=== PATIENT | male | born 1970 | race Hispanic/Latino ===

== ENCOUNTER 2018-11-02 13:48 | Emergency (ER) | payer SELFPAY ==
--- OUTSIDE RECORDS SUMMARY | 2018-11-02 13:51 | XMS REPORT | Clinical Summary ---
:1970 Author Organization [facility] Address [address] [place] [address] Care Team Providers Name Role Phone Asked, No Pcp Primary Care Provider Unavailable Allergies Active Allergy Reactions Severity Noted Date Comments Naproxen Sodium Swelling High 05/02/2018 Medications Medication Sig Dispensed Refills Start Date End Date Status metoprolol Take 12.5 mg 0 Active succinate XL by mouth (TOPROL-XL) 25 mg every 24 hr tablet evening. aspirin (ECOTRIN) Take 81 mg by 0 Active 81 MG enteric mouth daily. coated tablet metoprolol tartrate Take 12.5 mg 0 05/02/2018 Discontinued (LOPRESSOR) 25 mg by mouth tablet nightly. Active Problems Not on file Encounters Date Type Specialty Care Team Description 05/02/2018 Emergency Emergency Medicine José Pemberton, Acute chest pain Delroy Lopez MD (Primary Dx) after 11/01/2017 Social History Tobacco Use Types Packs/Day Years Used Date Never Smoker Smokeless Tobacco: Never Used Alcohol Use Drinks/Week oz/Week Comments Yes SOCIAL Sex Assigned at Date Recorded Not on file Job Start Date Occupation Industry Not on file Not on file Not on file Travel History Travel Start Travel End No recent travel history available. Last Filed Vital Signs Vital Sign Reading Time Taken Blood Pressure 131/76 05/02/2018 3:00 PM CDT Pulse 74 05/02/2018 3:00 PM CDT Temperature 37.1 C (98.7 F) 05/02/2018 9:31 AM CDT Respiratory Rate 20 05/02/2018 3:00 PM CDT Oxygen Saturation 99% 05/02/2018 3:00 PM CDT Inhaled Oxygen Concentration - - Weight 82.1 kg (181 lb) 05/02/2018 9:31 AM CDT Height 167.6 cm (5' 6") 05/02/2018 9:31 AM CDT Body Mass Index 29.21 05/02/2018 9:31 AM CDT Plan of Treatment Health Maintenance Due Date Last Done Comments INFLUENZA VACCINE 03/01/2019 Procedures Procedure Name Priority Date/Time Associated Comments Diagnosis TROPONIN STAT 05/02/2018 1:55 Results for this PM CDT procedure are in the results section. ECG 12-LEAD STAT 05/02/2018 1:53 Results for this PM CDT procedure are in the results section. ECG ED PRELIMINARY Routine 05/02/2018 10:40 Results for this INTERPRETATION AM CDT procedure are in the results section. ECG ED PRELIMINARY Routine 05/02/2018 10:40 Results for this INTERPRETATION AM CDT procedure are in the results section. XR CHEST 1 VW PORTABLE STAT 05/02/2018 9:55 Results for this AM CDT procedure are in the results section. ESTIMATED GFR Routine 05/02/2018 9:37 Results for this AM CDT procedure are in the results section. B NATRIURETIC PEPTIDE Routine 05/02/2018 9:37 Results for this AM CDT procedure are in the results section. LIPASE LEVEL Routine 05/02/2018 9:37 Results for this AM CDT procedure are in the results section. TROPONIN Routine 05/02/2018 9:37 Results for this AM CDT procedure are in the results section. COMPREHENSIVE METABOLIC Routine 05/02/2018 9:37 Results for this PANEL AM CDT procedure are in the results section. PROTHROMBIN TIME WITH Routine 05/02/2018 9:37 Results for this INR AM CDT procedure are in the results section. HC COMPLETE BLD COUNT Routine 05/02/2018 9:37 Results for this W/AUTO DIFF AM CDT procedure are in the results section. ECG 12-LEAD STAT 05/02/2018 9:24 Results for this AM CDT procedure are in the results section. after 11/01/2017 Results Troponin (05/02/2018 1:55 PM CDT)Only the most recent of2 resultswithin the time period is included. Troponin <0.30 0.00 - 0.30 ng/mL [facility]PART[facility] OF PATHOLOGY Comment: AND GENOMIC MEDICINE 0.11 - 1.49 ng/mlMay indicate increased risk of acute coronary syndrome. >=1.5 ng/mlConsistent with acute myocardial infarction. The diagnostic value of a single normal or non-diagnostic result is questionable.Serial samples at 2-6 hour intervals are required to rule out acute myocardial injury. Specimen Plasma specimen Performing Organization Address City/[facility]/Zipcode Phone Number [facility]OLOGY AND [address] [place] [id number] GENOMIC MEDICINE ECG 12 lead (05/02/2018 1:53 PM CDT)Only the most recent of2 resultswithin the time period is included. Ventricular rate 82 [facility] Atrial rate 82 [facility] LA interval 146 [facility] QRSD interval 102 [facility] QT interval 418 [facility] QTC interval 488 [facility] P axis 1 54 [facility] QRS axis 1 43 [facility] T wave axis 31 [facility] EKG impression Normal sinus rhythm with sinus [facility] MUSE arrhythmia-Prolonged QT-Abnormal ECG-In automated comparison with ECG of 02-MAY-2018 09:24,-No significant change was found- Performing Organization Address [facility] Phone Number [facility] MUSE [address] [place] [address] ECG ED Preliminary Interpretation - NOT AN ORDER (05/02/2018 10:40 AM CDT)Only the most recent of2 resultswithin the time period is included. Narrative Performed At Delroy Garduno MD 05/03/2018 11:47 AM ECG ED Preliminary Interpretation - Not an Order Performed by: DELROY GARDUNO Authorized by: DELROY GARDUNO ECG reviewed by ED Physician in the absence of a convention services manager: yes Previous ECG: Previous ECG:Compared to current Comparison ECG info:Compared to EKG taken on arrival Similarity:No change Interpretation: Interpretation: normal Rate: ECG rate:82 ECG rate assessment: normal Rhythm: Rhythm: sinus rhythm Ectopy: Ectopy: none QRS: QRS axis:Normal Conduction: Conduction: normal ST segments: ST segments:Normal T waves: T waves: normal XR Chest 1 Vw Portable (05/02/2018 9:55 AM CDT) Narrative Performed At EXAMINATION:XR CHEST 1 VW PORTABLE [facility] CLINICAL HISTORY:Chest Pain XR CHEST 1 VW PORTABLEimages are submitted COMPARISON:NONE FINDINGS: The cardiac silhouette is normal in size. The pulmonary vasculature is within normal limits. The lung zones have no focal area of consolidation. There is no pleural effusion or pneumothorax. IMPRESSION: 1. There is no acute cardiopulmonary disease. [facility][id number] Procedure Note Hm Interface, Radiology Results Incoming - 05/02/2018 10:07 AM CDT EXAMINATION: XR CHEST 1 VW PORTABLE CLINICAL HISTORY: Chest Pain XR CHEST 1 VW PORTABLE images are submitted COMPARISON: NONE FINDINGS: The cardiac silhouette is normal in size. The pulmonary vasculature is within normal limits. The lung zones have no focal area of consolidation. There is no pleural effusion or pneumothorax. IMPRESSION: 1. There is no acute cardiopulmonary disease. [facility][id number] Performing Organization Address City/[facility]/Zipcode Phone Number J[address]GE [address] [place] [address] Estimated GFR (05/02/2018 9:37 AM CDT) Estimated GFR >=90 mL/min/1.73 m2 [facility] DEPARTMENT OF Comment: PATHOLOGY AND GENOMIC CatergoryUnitsInterpretation MEDICINE G1 >=90 Normal or high G2 60-89Mildly decreased [id number] to moderately decreased [id number] to severely decreased G4 15-29Severely decreased G5 <15Kidney failure The eGFR was calculated using the Chronic Kidney Disease Epidemiology Collaboration (CKD-EPI) equation. Interpretation is based on recommendations of the National Kidney Foundation-Kidney Disease Outcomes Quality Initiative (NKF-KDOQI) published in 2014. Specimen Plasma specimen Performing Organization Address [facility] Hospitalcoks Phone Number [facility] OF [facility]OLOGY AND [place] [address] [employer] MEDICINE Prothrombin time with INR (05/02/2018 9:37 AM CDT) Prothrombin time 12.1 12.0 - 15.0 sec [facility] OF PATHOLOGY AND GENOMIC MEDICINE INR 0.89 (L) 0.92 - 1.12 [facility] OF Comment: PATHOLOGY AND GENOMIC For patients on anticoagulant therapy, reference ranges below: MEDICINE Indication:INR Value Treatment of Venous Thrombosis, 2.0-3.0 pulmonary emboli, or prophylaxis of a venous thrombosis, or systemic emboli. High dose, high risk patients 3.0-4.5 with mechanical valves. NOTE:INR values over 3.0 are sometimes associated with gastrointestinal hemorrhage, especially values over 4.0. Specimen Blood Performing Organization Address [facility] Hospitalcode Phone Number [facility] OF [facility]OLOGY AND [address] [place] [address] [facility] MEDICINE CBC with platelet and differential (05/02/2018 9:37 AM CDT) WBC 6.3 4.2 - 11.0 k/uL [facility] OF [facility]OLOGY AND GENOMIC MEDICINE RBC 4.71 4.04 - 5.86 m/uL [facility] OF [facility]OLOGY AND GENOMIC MEDICINE HGB 14.7 13.0 - 17.3 g/dL [facility] OF [facility]OLOGY AND GENOMIC MEDICINE HCT 43.7 34.0 - 45.0 % [facility] OF [facility]OLOGY AND GENOMIC MEDICINE MCV 92.8 80.0 - 98.0 fL [facility] OF [facility]OLOGY AND GENOMIC MEDICINE MCH 31.2 27.0 - 34.0 pg [facility] OF PATHOLOGY AND GENOMIC MEDICINE MCHC 33.6 31.5 - 36.5 g/dL [facility] OF [facility]OLOGY AND GENOMIC MEDICINE RDW - SD 44.5 37.0 - 51.0 fL [facility] OF [facility]OLOGY AND GENOMIC MEDICINE MPV 10.0 7.4 - 10.4 fL [facility]OLOGY AND GENOMIC MEDICINE Platelet count 210 150 - 400 k/uL [facility] OF [facility]OLOGY AND GENOMIC MEDICINE Nucleated RBC 0.00 /100 WBC [facility] OF PATHOLOGY AND GENOMIC MEDICINE Neutrophils 52.8 36.0 - 66.0 % [facility] OF [facility]OLOGY AND GENOMIC MEDICINE Lymphocytes 33.2 24.0 - 44.0 % [facility] OF [facility]OLOGY AND GENOMIC MEDICINE Monocytes 7.3 (H) 0.0 - 6.0 % [facility] OF [facility]OLOGY AND GENOMIC MEDICINE Eosinophils 5.6 0.0 - 6.0 % [facility] OF [facility]OLOGY AND GENOMIC MEDICINE Basophils 0.5 0.0 - 1.2 % [facility] OF [facility]OLOGY AND GENOMIC MEDICINE Immature granulocytes 0.6 0.0 - 1.0 % [facility] OF [facility]OLOGY AND GENOMIC MEDICINE Specimen Blood Performing Organization Address City/State/Zipcode Phone Number [facility]OLOGY AND [address] [place] [address] [facility] B natriuretic peptide (05/02/2018 9:37 AM CDT) BNP 5 0 - 100 pg/mL [facility] OF [facility]OLOGY AND GENOMIC MEDICINE Specimen Blood Performing Organization Address City/State/Zipcode Phone Number [facility]OLOGY AND [address] [place] [address] GENOMIC MEDICINE Lipase level (05/02/2018 9:37 AM CDT) Lipase 23 13 - 60 U/L [facility] OF PATHOLOGY AND GENOMIC MEDICINE Specimen Plasma specimen Performing Organization Address City/[facility] Hospital[facility] Phone Number [facility] OF [facility]OLOGY AND [address] [address] [facility] Comprehensive metabolic panel (05/02/2018 9:37 AM CDT) Sodium 139 135 - 150 mEq/L [facility] OF PATHOLOGY AND GENOMIC MEDICINE Potassium 4.1 3.5 - 5.0 mEq/L [facility] OF PATHOLOGY AND GENOMIC MEDICINE Chloride 98 98 - 112 mEq/L [facility] OF [facility] AND GENOMIC MEDICINE CO2 26 24 - 31 mmol/L [facility] OF [facility]OLOGY AND GENOMIC MEDICINE Anion gap 15@ANIO 7 - 15 mEq/L [facility] OF [facility]OLOGY AND GENOMIC MEDICINE BUN 15 7 - 18 mg/dL [facility] OF PATHOLOGY AND GENOMIC MEDICINE Creatinine 0.90 0.70 - 1.20 mg/dL [facility] OF PATHOLOGY AND GENOMIC MEDICINE Glucose 136 (H) 65 - 100 mg/dL [facility] OF [facility]OLOGY AND GENOMIC MEDICINE Calcium 9.2 8.3 - 10.2 mg/dL [facility] OF PATHOLOGY AND GENOMIC MEDICINE Protein 7.6 6.3 - 8.3 g/dL [facility] OF [facility]OLOGY AND GENOMIC MEDICINE Albumin 4.1 3.5 - 5.0 g/dL [facility] OF PATHOLOGY AND GENOMIC MEDICINE A/G ratio 1.2 0.7 - 3.8 [facility] OF [facility]OLOGY AND GENOMIC MEDICINE Alkaline phosphatase 91 0 - 129 U/L [facility] OF [facility]OLOGY AND GENOMIC MEDICINE AST 35 10 - 50 U/L [facility] OF PATHOLOGY AND GENOMIC MEDICINE ALT 53 (H) 5 - 50 U/L [facility] OF PATHOLOGY AND GENOMIC MEDICINE Total bilirubin 0.5 0.2 - 1.2 mg/dL [facility] OF PATHOLOGY AND GENOMIC MEDICINE Specimen Plasma specimen Performing Organization Address City/State/Zipcode Phone Number [facility]OLOGY AND [place] [address] [facility] after 11/01/2017 Advance Directives Patient has advance care planning documents on file. For more information, please contact:Cheng Ibrahim[address] [place] [id number]
--- OUTSIDE RECORDS SUMMARY | 2018-11-02 13:51 | XMS REPORT | Summary of Care ---
:1970 Author Name KYLE MODI M.D. Address Unavailable Unavailable , Care Team Providers Name Role Phone KYLE MODI M.D. Unavailable Unavailable Catalina Givens M.A. Unavailable Unavailable MARY VINES, JT LEY Unavailable Unavailable Unavailable Unavailable Unavailable Functional Status Name Dates Details Functional status health issues are not documented Status: Name Dates Details Cognitive status health issues are not documented Status: Problems Name Dates Details Chest tightness or pressure (786.59, R07.89) Status: Active Essential (primary) hypertension (401.9, I10) Status: Active Pounding heartbeat (785.1, R00.2) Status: Active Medications Name Dates Details Metoprolol Succinate ER 25 MG Oral Tablet Extended Release 24 Hour TAKE 1 TABLET BEDTIME Quantity: 90 Refills: 0 KYLE MODI M.D. Start : 12-Aug-2015 Active Blood Pressure Monitor Automat Device check blood pressure 3 times a day Quantity: 1 Refills: 0 KYLE MODI M.D. Start : 05-Mar-2016 Active Allergies and Adverse Reactions Name Dates Details Aleve CAPS (Allergy) Status: Active Past Medical History Name Dates Details History of essential hypertension (V12.59, Z86.79) Status: Resolved History of Intercostal pain (786.59, R07.82) Status: Resolved Procedures Procedure Dates Details History of Appendectomy Completed History of Hernia Repair Completed Immunization Name Dates Details Immunizations not documented Family History Name Dates Details Family history of Cancer Comments: Family History Status: Active Name Dates Details Family history of Essential Hypertension Status: Active Social History Name Dates Details - Status: Name Dates Details Never smoker Vital Signs Date Test Result Details No Known Vitals to report Results Date Description Value Details Results not documented Plan of Care Name Dates Details Planned Observations Planned Goals not documented Interventions Provided Medication ChangesMetoprolol Succinate ER 25 MG Oral Tablet Extended Release 24 Hour - Renew Instructions Name Dates Details Instructions not documented Encounters Appointment; KYLE MODI M.D. On: 16-Nov-2016 9:15 Encounter Diagnosis: Problem not documented Appointment; KYLE MODI M.D. On: 18-Nov-2016 8:50 Encounter Diagnosis: Problem not documented Appointment; KYLE MODI M.D. On: 15-Jun-2017 13:10 Encounter Diagnosis: Problem not documented Appointment; KYLE MODI M.D. On: 06-Jul-2017 13:30 Encounter Diagnosis: Problem not documented Appointment; KYLE MODI M.D. On: 06-Jan-2018 8:45 Encounter Diagnosis: Problem not documented Appointment; KYLE MODI M.D. On: 30-Jan-2018 14:50 Encounter Diagnosis: Problem not documented Appointment; KYLE MODI M.D. On: 08-May-2018 15:00 Encounter Diagnosis: Problem not documented
[2018-11-02 14:12] LABS: Absolute Lymphocytes (CBC) 1.6 K/uL (0.7-4.9); Absolute Monocytes 0.5 K/uL (0.1-1.3); Absolute Neutrophil 3.3 K/uL (1.8-8.0); Basophils % 0.7 % (0-1.3); Eosinophils % 5.8 % (0-4.4); Hematocrit 40.4 % (39.6-49.0); Lymphocytes % 27.2 % (15.3-44.8); MPV 8.6 fL (7.6-11.3); Monocytes % 8.8 % (3.3-12.3); RBC Red Blood Cell Count 4.36 M/uL (4.33-5.43)
[2018-11-02 14:28] LABS: BUN Blood Urea Nitrogen 20 mg/dL (7-18); Bicarbonate 27 mmol/L (21-32); Glucose Level 98 mg/dL (74-106); NT PRO-BNP 43 pg/mL (<125); Potassium 3.6 mmol/L (3.5-5.1); Sodium Level 142 mmol/L (136-145); Troponin (Emerg Dept Use Only) < 0.02 ng/mL (0.0-0.045)
--- NOTE | 2018-11-02 14:37 | RAD REPORT ---
EXAM DESCRIPTION: RAD - Chest Single View - 11/02/2018 2:13 pm CLINICAL HISTORY: Chest pain radiating to the right COMPARISON: August 2015 TECHNIQUE: AP portable chest image was obtained 1409 hours . FINDINGS: Lungs are clear. Heart and vasculature are normal. No measurable pleural effusion and no p neumothorax. No acute bony abnormality seen. No acute aortic findings suspected. IMPRESSION: No acute cardiopulmonary process. No significant interval change.
[2018-11-02] MEDS ORDERED: ACETAMINOPHEN 500 MG TAB ONE (15:50)
--- NOTE | 2018-11-02 17:57 | ER ---
Nurse's Notes [facility] Name: Tomy Miranda Age: 48 yrs Sex: Male : 1970 Arrival Date: 11/02/2018 Time: 13:50 Bed 8 Private MD: Diagnosis: Chest pain, unspecified Presentation: 11/02 13:54 Presenting complaint: Patient states: substernal chest pain radiating to right side of iw chest while working up on scaffold, pt states he got hot and dizzy and felt nauseous, hx of RI on 2007, no stent placement pain 8/10, described as sharp, pain unresolved after 1 SL Nitro and 324 ASA. Transition of care: patient was not received from another setting of care. Onset of symptoms was November 02, 2018. Risk Assessment: Do you want to hurt yourself or someone else? Patient reports no desire to harm self or others. Initial Sepsis Screen: Does the patient meet any 2 criteria? No. Patient's initial sepsis screen is negative. Does the patient have a suspected source of infection? No. Patient's initial sepsis screen is negative. Care prior to arrival: Medication(s) given: ASA, 81 mg, x 4, Normal saline infusion, 250 mL Nitroglycerin, 0.4 mg SL x 1, IV initiated. 20 GA, in the left antecubital area. 13:54 Method Of Arrival: EMS: [facility] 13:54 Acuity: LESLIE 2 iw Historical: - Allergies: 14:00 Aleve; iw - Home Meds: 14:00 Metoprolol Tartrate 12.5 mg Oral once daily [Active]; iw - PMHx: 14:00 Myocardial infarction; iw - PSHx: 13:56 Appendectomy; Hernia repair; iw - Immunization history:: Adult Immunizations not up to date. - Social history:: Smoking status: Patient/guardian denies using tobacco. - Ebola Screening: : Patient negative for fever greater than or equal to 101.5 degrees Fahrenheit, and additional compatible Ebola Virus Disease symptoms Patient denies exposure to infectious person Patient denies travel to an Ebola-affected area in the 21 days before illness onset No symptoms or risks identified at this time. - Family history:: not pertinent. - Hospitalizations: : No recent hospitalization is reported. Screenin:14 Abuse screen: Denies threats or abuse. Denies injuries from another. Nutritional iw screening: No deficits noted. Tuberculosis screening: No symptoms or risk factors identified. Fall Risk IV access (20 points). Assessment: 14:08 General: Appears in no apparent distress. Behavior is calm, cooperative. Pain: iw Complains of pain in mid-sternal area Pain radiates to anterior aspect of right upper chest Pain began 1 hour ago. Neuro: Level of Consciousness is awake, alert, obeys commands, Moves all extremities. Full function. Cardiovascular: Reports chest pain, Heart tones S1 S2 Capillary refill < 3 seconds in bilateral fingers Patient's skin is warm and dry. Respiratory: Respiratory effort is even, unlabored, Respiratory pattern is regular. GI: Abdomen is flat. Derm: Skin is intact, is healthy with good turgor. Musculoskeletal: Range of motion: intact in all extremities. 14:58 Reassessment: Patient and/or family updated on plan of care and expected duration. Pain hj level reassessed. Patient is alert, oriented x 3, equal unlabored respirations, skin warm/dry/pink. awaiting results and POC:. 16:14 Reassessment: repeat trop at 5 pm;. hj 17:21 Reassessment: Patient appears in no apparent distress at this time. Patient and/or iw family updated on plan of care and expected duration. Pain level reassessed. Patient is alert, oriented x 3, equal unlabored respirations, skin warm/dry/pink. repeat trop sent to lab Patient denies pain at this time. Patient states feeling better. Vital Signs: 13:57 BP 130 / 91; Pulse 76; Resp 16; Temp 98.9(TE); Pulse Ox 100% on R/A; Weight 79.38 kg; iw Height 5 ft. 6 in. (167.64 cm); Pain 8/10; 14:22 BP 137 / 82; Pulse 72; Resp 16; Pulse Ox 99% on R/A; iw 14:34 BP 127 / 81; Pulse 74; Resp 16; Pulse Ox 98% on R/A; iw 14:57 BP 127 / 81; Pulse 69; Resp 18; Pulse Ox 99% on R/A; hj 16:15 BP 128 / 85; Pulse 58; Resp 18; Pulse Ox 100% on R/A; hj 17:21 BP 131 / 84; Pulse 55; Resp 16; Pulse Ox 98% on R/A; iw 13:57 Body Mass Index 28.25 (79.38 kg, 167.64 cm) iw ED Course: 13:50 Patient arrived in ED. hj 13:56 Triage completed. iw 13:57 Arm band placed on. iw 13:57 Patient has correct armband on for positive identification. Placed in gown. Bed in low hj position. Call light in reach. Side rails up X 1. Adult w/ patient. shelter monitor on. Pulse ox on. NIBP on. 13:58 Sebastián Kennedy MD is Attending Physician. rn 14:02 EKG done, by smt technician. reviewed by Sebastián Kennedy MD. sm3 14:06 Shawanda Min, ISIDRO is Primary Nurse. iw 14:07 Initial lab(s) drawn, by me, sent to lab. jb1 14:07 Patient maintains SpO2 saturation greater than 95% on room air. hj 14:13 XRAY Chest (1 view) In Process Unspecified. EDMS 18:12 No provider procedures requiring assistance completed. IV discontinued, intact, iw bleeding controlled, No redness/swelling at site. Pressure dressing applied. Administered Medications: 15:40 Not Given (Patient Refused): [place] 10 mg-325 mg 1 tabs PO once iw 15:40 Drug: Tylenol 1000 mg Route: PO; iw 17:37 Follow up: Response: No adverse reaction iw Outcome: 17:57 Discharge ordered by . rn 18:12 Discharged to home ambulatory, with family. iw 18:12 Condition: good 18:12 Discharge instructions given to patient, family, Instructed on discharge instructions, follow up and referral plans. Demonstrated understanding of instructions, follow-up care. 18:13 Patient left the ED. iw Signatures: Dispatcher [employer] EDMS Tomy Laura jb1 Shawanda Min, ISIDRO FELIX iw Sebastián Kennedy MD MD rn Joaquin, Henry, RN RN hj Montes, Shakira sm3 Corrections: (The following items were deleted from the chart) 14:00 13:57 BP 130 / 91; Pulse 76bpm; Resp 16bpm; Pulse Ox 100% RA; Temp 98.9F Temporal; Pain iw 8; iw
--- NOTE | 2018-11-02 17:58 | EDPHYS ---
Physician Documentation [facility] Name: Tomy Miranda Age: 48 yrs Sex: Male : 1970 Arrival Date: 11/02/2018 Time: 13:50 Bed 8 Private MD: ED Physician Sebastián Kennedy HPI: 11/02 14:11 This 48 yrs old Male presents to ER via EMS with complaints of Chest Pain. rn 14:11 The patient or guardian reports chest pain that is located primarily in the substernal rn area, anterior chest wall, right. Onset: 1 hour(s) ago. The pain radiates to Associated signs and symptoms: Pertinent positives: nausea, Pertinent negatives: abdominal pain, diaphoresis, shortness of breath, syncope, vomiting. The chest pain is described as a heaviness, sharp. Duration: The patient or guardian reports a single episode, that is still ongoing. Modifying factors: The symptoms are alleviated by nothing. the symptoms are aggravated by nothing. Severity of pain: At its worst the pain was moderate in the emergency department the pain is unchanged. The patient has experienced a previous episode. Reports chest pain, began substernal now right side of chest, radiates to neck, assoc with nausea and feeling sick, was at work, got down from height, and brought here for further eval, given 4 aspirin and 1 nitro, states nitro didn't really help. Reports hx of "mild heart attack" in past, no stent. Takes metoprolol. . Historical: - Allergies: 14:00 Aleve; iw - Home Meds: 14:00 Metoprolol Tartrate 12.5 mg Oral once daily [Active]; iw - PMHx: 14:00 Myocardial infarction; iw - PSHx: 13:56 Appendectomy; Hernia repair; iw - Immunization history:: Adult Immunizations not up to date. - Social history:: Smoking status: Patient/guardian denies using tobacco. - Ebola Screening: : Patient negative for fever greater than or equal to 101.5 degrees Fahrenheit, and additional compatible Ebola Virus Disease symptoms Patient denies exposure to infectious person Patient denies travel to an Ebola-affected area in the 21 days before illness onset No symptoms or risks identified at this time. - Family history:: not pertinent. - Hospitalizations: : No recent hospitalization is reported. ROS: 14:11 Constitutional: Negative for fever, chills, and weight loss, Eyes: Negative for injury, rn pain, redness, and discharge, Neck: Negative for injury, pain, and swelling, Cardiovascular: Negative for palpitations, and edema, Respiratory: Negative for shortness of breath, cough, wheezing, and pleuritic chest pain, Abdomen/GI: Negative for abdominal pain, vomiting, diarrhea, and constipation, MS/Extremity: Negative for injury and deformity, Skin: Negative for injury, rash, and discoloration, Neuro: Negative for headache, weakness, numbness, tingling, and seizure. Exam: 14:11 Constitutional: This is a well developed, well nourished patient who is awake, alert, rn and in no acute distress. Head/Face: Normocephalic, atraumatic. Eyes: Pupils equal round and reactive to light, extra-ocular motions intact. Lids and lashes normal. Conjunctiva and sclera are non-icteric and not injected. Cornea within normal limits. Periorbital areas with no swelling, redness, or edema. Cardiovascular: Regular rate and rhythm, no murmur. No pulse deficits. Respiratory: Lungs have equal breath sounds bilaterally, clear to auscultation Abdomen/GI: soft, non-tender MS/ Extremity: Pulses equal, no cyanosis. Neurovascular intact. Full, normal range of motion. Equal circumference. Neuro: Awake and alert, GCS 15, oriented to person, place, time, and situation. Cranial nerves II-XII grossly intact. Motor strength 5/5 in all extremities. Sensory grossly intact. Vital Signs: 13:57 BP 130 / 91; Pulse 76; Resp 16; Temp 98.9(TE); Pulse Ox 100% on R/A; Weight 79.38 kg; iw Height 5 ft. 6 in. (167.64 cm); Pain 8/10; 14:22 BP 137 / 82; Pulse 72; Resp 16; Pulse Ox 99% on R/A; iw 14:34 BP 127 / 81; Pulse 74; Resp 16; Pulse Ox 98% on R/A; iw 14:57 BP 127 / 81; Pulse 69; Resp 18; Pulse Ox 99% on R/A; hj 16:15 BP 128 / 85; Pulse 58; Resp 18; Pulse Ox 100% on R/A; hj 17:21 BP 131 / 84; Pulse 55; Resp 16; Pulse Ox 98% on R/A; iw 13:57 Body Mass Index 28.25 (79.38 kg, 167.64 cm) iw MDM: 13:58 Patient medically screened. rn 15:25 Differential diagnosis: acute myocardial infarction, acute pericarditis, anxiety, rn coronary artery disease chest wall pain, costochondritis, gastritis, pleurisy, pneumothorax. The patient was not given aspirin in the Emergency Department. Administered by EMS. Data reviewed: vital signs, nurses notes. 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 Return precautions given and understood. Will repeat trop and ECG and treat accordingly. . 17:57 ED course: Rpt troponin and ECG no change, patient wants to go home, return precautions rn given and understood, will dc home and urged to f/u [facility] with cardiology. . 11/02 13:59 Order name: Basic Metabolic Panel; Complete Time: 14:56 rn 11/02 13:59 Order name: CBC with Diff; Complete Time: 14:56 rn 11/02 13:59 Order name: NT PRO-BNP; Complete Time: 14:56 rn 11/02 13:59 Order name: Troponin (emerg Dept Use Only); Complete Time: 14:56 rn 11/02 17:17 Order name: Troponin (emerg Dept Use Only); Complete Time: 17:57 rn 11/02 17:17 Order name: Troponin (emerg Dept Use Only) 11/02 13:59 Order name: XRAY Chest (1 view); Complete Time: 14:56 rn 11/02 13:59 Order name: EKG; Complete Time: 13:59 rn 11/02 13:59 Order name: Cardiac monitoring; Complete Time: 14:07 rn 11/02 13:59 Order name: EKG - Nurse/Tech; Complete Time: 14:07 rn 11/02 13:59 Order name: IV Saline Lock; Complete Time: 14:07 rn 11/02 17:17 Order name: EKG; Complete Time: 17:17 rn 11/02 13:59 Order name: Labs collected and sent; Complete Time: 14:07 rn 11/02 13:59 Order name: O2 Per Protocol; Complete Time: 14:07 rn 11/02 13:59 Order name: O2 Sat Monitoring; Complete Time: 14: rn 11/02 17:17 Order name: EKG - Nurse/Tech; Complete Time: 17:36 rn Administered Medications: 15:40 Not Given (Patient Refused): [place] 10 mg-325 mg 1 tabs PO once iw 15:40 Drug: Tylenol 1000 mg Route: PO; iw 17:37 Follow up: Response: No adverse reaction iw Disposition: 11/02/18 17:57 Discharged to Home. Impression: Chest pain, unspecified. - Condition is Stable. - Discharge Instructions: Nonspecific Chest Pain. - Work release form, Medication Reconciliation Form, Thank You Letter, Antibiotic Education, Prescription Opioid Use form. - Follow up: Private Physician; When: As needed; Reason: Recheck today's complaints, Re-evaluation by your physician. - Problem is new. - Symptoms have improved. Signatures: Dispatcher [employer] EDShawanda May RN RN iw Sebastián Kennedy MD MD programming internship: (The following items were deleted from the chart) 18:13 17:57 11/02/2018 17:57 Discharged to Home. Impression: Chest pain, unspecified. iw Condition is Stable. Forms are Medication Reconciliation Form, Thank You Letter, Antibiotic Education, Prescription Opioid Use. Follow up: Private Physician; When: As needed; Reason: Recheck today's complaints, Re-evaluation by your physician. Problem is new. Symptoms have improved. rn
== END 2018-11-02 18:13 | disposition home or self-care (01) ==
LOC: ER 13:48
DX: R07.9 Chest pain, unspecified (principal); I25.2 Old myocardial infarction; Z88.6 Allergy status to analgesic agent
CPT/HCPCS: 36415; 71045; 80048; 83880; 84484; 85025; 93005; 99285